=== PATIENT | female | born 1995 | race Two or more races ===

== ENCOUNTER 2020-12-13 16:58 | Emergency (ER) | payer MEDICAID, OTHER ==
[~2020-12-13] VITALS: Ht 160 cm; Wt 74.8 kg
[2020-12-13 18:43] VITALS: BP 122/76
[2020-12-13] MEDS ORDERED: LIDOCAINE 1% HCL (LOCAL ANESTH.) INJ 20ML MDV ID ONE (19:15)
== END 2020-12-13 20:44 | disposition home or self-care (01) ==
LOC: ER 16:58
DX: S01.112A Laceration without foreign body of left eyelid and periocular area, initial encounter (principal); X58.XXXA Exposure to other specified factors, initial encounter; Y93.89 Activity, other specified; Y92.89 Other specified places as the place of occurrence of the external cause; Y99.8 Other external cause status
CPT/HCPCS: 12013; 99283; J2001

== ENCOUNTER 2020-12-15 18:40 | Emergency (ER) | payer MEDICAID ==
[~2020-12-15] VITALS: Ht 160 cm; Wt 74.8 kg
[2020-12-15 21:56] VITALS: BP 112/72
== END 2020-12-15 22:12 | disposition home or self-care (01) ==
LOC: ER 18:40
DX: S01.112D Laceration without foreign body of left eyelid and periocular area, subsequent encounter (principal); Z88.0 Allergy status to penicillin; Z88.8 Allergy status to other drugs, medicaments and biological substances; W21.03XD Struck by baseball, subsequent encounter